=== PATIENT | male | born 1995 | race Caucasian/White ===

== ENCOUNTER 2016-04-18 19:08 | Emergency (ER) | payer OTHER, BC ==
[~2016-04-18] VITALS: Ht 180.3 cm; Wt 90.9 kg
[2016-04-18 19:10] VITALS: BP 153/78; PULSE 64; TEMP 97.2
== END 2016-04-18 20:12 | disposition home or self-care (01) ==
LOC: COL.ER 19:08
DX: S61.011A Laceration without foreign body of right thumb without damage to nail, initial encounter (principal); W27.8XXA Contact with other nonpowered hand tool, initial encounter